=== PATIENT | female | born 1960 | race Caucasian/White ===

== ENCOUNTER 2016-04-09 17:57 | Emergency (ER) | payer MEDICAID, OTHER ==
[2016-04-09] MEDS ORDERED: GELATIN SPONGE,ABSORBABLE 12-7 1 SPONGE SPONGE TOPICAL ONE (18:15)
--- NOTE | 2016-04-09 19:34 | ER NURSING DOCUMENTATION ---
Nurse's Notes [facility] Name:Toya José Age:55 yrs Sex:Female :1960 Arrival Date:04/09/2016 Time:17:57 Bed1 Private MD:Susy Murguia Diagnosis:Wound Recheck Presentation: 04/09 18:05 Acuity: MARINA 2 cb 18:05 Notified ED Physician of patient's arrival and CC Dr. Dong notified. cb 18:06 Presenting complaint: Patient states: bleeding from post op skin removal. Transition of cb care: Caitie. 18:06 Method Of Arrival: Private Vehicle cb Triage Assessment: 18:10 General: Appears distressed, well groomed, Behavior is cooperative. Pain: Denies pain. cb 18:10 EENT: No deficits noted. cb 18:10 Neuro: Level of Consciousness is awake, alert, Oriented to person, place, time, event. cb Cardiovascular: Pulses are 2+ in left radial artery. Respiratory: Airway is patent Trachea midline Respiratory effort is even, unlabored, Respiratory pattern is regular, symmetrical. GI: Reports haven't eaten and drank anything all day. : No deficits noted. Derm: Skin suture line intact from procedure today but oozing and bleeding from suture line. Musculoskeletal: Circulation, motion, and sensation intact Capillary refill < 3 seconds. Historical: - Allergies: No known drug Allergies; - Home Meds: 1. Cymbalta oral 2. Nexium Oral 3. hypertension med 4. Metformin Oral 5. aspirin 81 mg oral tab 1 tab once daily 6. oxybutynin chloride 5 mg/5 mL oral syrp 5 mL 4 times per day - Tetanus: < 10 years. - Ebola Screening: : Patient negative for fever greater than or equal to 101.5 degrees Fahrenheit, and additional compatible Ebola Virus Disease symptoms. Patient denies exposure to infectious person. Patient denies travel to an Ebola-affected area in the 21 days before illness onset. No symptoms or risks identified at this time. . - Immunization history: Flu Vaccine None. - Social history: Smoking status: Patient states former smoker of tobacco. Screenin:24 Infectious Disease Risk None. Abuse screen: Denies threats or abuse. Denies injuries cb from another. Nutritional screening: No deficits noted. Vital Signs: 18:04 BP 170 / 106; Pulse 115; Resp 24; Temp 98.2(TE); Pulse Ox 91% on R/A; Weight 68.95 kg; cb Height 5 ft. 6 in. (167.64 cm); Pain 0/10; 19:02 BP 134 / 95; Pulse 90; cb 18:04 Body Mass Index 24.53 (68.95 kg, 167.64 cm) cb ED Course: 17:58 Patient arrived in ED. em2 17:58 Susy Murguia is Private Physician. em2 18:04 Gricel Mac, RN is Primary Nurse. cb 18:04 Valuables Remains with patient Patient has correct armband on for positive cb identification. Placed in gown. Bed in low position. Call light in reach. patient placed on abdomen for control of bleeding. 18:05 Triage completed. cb 18:23 Bruce Dong MD is Attending Physician. co 18:50 Dressings: ABD pad X 2; 4X4s X 4; post op dressing from dressing cart in Med/Surg cb placed directly onto suture line. 18:50 Feng wrap to back x3. cb 19:30 Diet: Patient given snack. Patient given juice. Tolerated well. cb Administered Medications: No medications were administered Outcome: 18:35 Discharge ordered by . co 19:33 Discharged to home ambulatory. 19:33 Condition: improved 19:33 Discharge Assessment: Patient awake, alert and oriented x 3. No cognitive and/or functional deficits noted. Patient verbalized understanding of disposition instructions. dressing is clean,dry and intact. Pt states dressing is secure and feels good. No leakage noted 19:33 Discharge instructions given to patient, Instructed on discharge instructions, follow up and referral plans. Demonstrated understanding of instructions. 19:34 Patient left the ED. 04/10 13:12 Discharge F/U Call: Spoke with: patient. Have you made a f/u appointment? yes Overall lb Care on a scale of 1-10 with 10 being the best care, you rate our care as: the rating of 9. Signatures: Gricel Mac, ROMAN OWENS cb Bruce Dong MD MD co Brayan-reg, Karly-reg em2 Kylie Sherwood Nelly Sanabria
--- NOTE | 2016-04-09 19:34 | ER PHYSICIAN DOCUMENTATION ---
Physician Documentation [facility] Name:Toya José Age:55 yrs Sex:Female :1960 Arrival Date:04/09/2016 Time:17:57 Bed1 Private MD:Susy Murguia ED, Scott Disposition: 04/09/16 18:35 Discharged to Home/Self Care. Impression: Wound Recheck. - Condition is Good. - Discharge Instructions: WOUND CHECK, Lac F/U (No Infection). - Medical Reconciliation form form. - Follow up: Private Physician; When: Tomorrow; Reason: Continuance of care. - Problem is new. - Symptoms have improved. HPI: 04/09 18:31 This 55 yrs old Female presents to ER via Private Vehicle with complaints of sc Back Injury. 18:31 Patient presents to ED for recheck of: youth services specialist excision today, now developed sc hematoma oozing from op site. The affected area is on the back. Previous treatment: The patient was initially treated today. Historical: - Allergies: No known drug Allergies; - Home Meds: 1. Cymbalta oral 2. Nexium Oral 3. hypertension med 4. Metformin Oral 5. aspirin 81 mg oral tab 1 tab once daily 6. oxybutynin chloride 5 mg/5 mL oral syrp 5 mL 4 times per day - Tetanus: < 10 years. - Ebola Screening: : Patient negative for fever greater than or equal to 101.5 degrees Fahrenheit, and additional compatible Ebola Virus Disease symptoms. Patient denies exposure to infectious person. Patient denies travel to an Ebola-affected area in the 21 days before illness onset. No symptoms or risks identified at this time. . - Immunization history: Flu Vaccine None. - Social history: Smoking status: Patient states former smoker of tobacco. ROS: 18:32 Constitutional: Negative for fever, chills, and weight loss. sc Eyes: Negative for injury, pain, redness, and discharge. Neck: Negative for injury, pain, and swelling. MS/Extremity: Negative for injury and deformity. 18:32 Neuro: Negative for headache, weakness, numbness, tingling, and seizure. sc 18:32 Skin: Positive for hematoma. Exam: Constitutional: This is a well developed, well nourished patient who is awake, alert, and in no acute distress. Head/Face: Normocephalic, atraumatic. Eyes: Pupils equal round and reactive to light, extra-ocular motions intact. Lids and lashes normal. Conjunctiva and sclera are non-icteric and not injected. Cornea within normal limits. Periorbital areas with no swelling, redness, or edema. Neck: Trachea midline, no thyromegaly or masses palpated, and no cervical lymphadenopathy. Supple, full range of motion without nuchal rigidity, or vertebral point tenderness. No meningismus. 18:33 Skin: Warm, dry with normal turgor. Normal color with no rashes, no lesions, and no sc evidence of cellulitis. 18:33 Back: well approximated 12 cm surgical wound with hematoma, oozing between sututres, ebl 150 mL. 18:35 Skin: Wound recheck: Suture laceration closure: sc Vital Signs: 18:04 BP 170 / 106; Pulse 115; Resp 24; Temp 98.2(TE); Pulse Ox 91% on R/A; Weight 68.95 kg; cb Height 5 ft. 6 in. (167.64 cm); Pain 0/10; 19:02 BP 134 / 95; Pulse 90; cb 18:04 Body Mass Index 24.53 (68.95 kg, 167.64 cm) cb MDM: 18:23 Patient medically screened. sc 18:34 Differential diagnosis: no sxs signif blood loss or infection, local wound care and sc pressure dressing, follow up with youth services specialist scheduled for tomorrow. Data reviewed: vital signs, nurses notes, old medical records, and as a result, I will discharge patient. Dispensed Medications: No medications were administered Signatures: Gricel Mac, RN RN Bruce Pink MD MD sc Kylie Sherwood
== END 2016-04-09 19:34 | disposition home or self-care (01) ==
LOC: ER 17:57
DX: L76.31 Postprocedural hematoma of skin and subcutaneous tissue following a dermatologic procedure (principal); Z48.01 Encounter for change or removal of surgical wound dressing; Z79.82 Long term (current) use of aspirin
CPT/HCPCS: 99283

== ENCOUNTER 2016-06-30 14:44 | Emergency (ER) | payer MEDICAID ==
[2016-06-30] MEDS ORDERED: LORazepam 1 MG TABLET ONE ×2 (15:13→15:35)
[2016-06-30] MEDS ORDERED: ACETAMINOPHEN 325 MG TABLET PO ONE (16:48)
[2016-06-30] MEDS ORDERED: IBUPROFEN 400 MG TABLET PO ONE (16:49)
--- NOTE | 2016-06-30 20:14 | ER PHYSICIAN DOCUMENTATION ---
Physician Documentation [facility] Name:Toya José Age:55 yrs Sex:Female :1960 Arrival Date:06/30/2016 Time:14:44 BedTrauma-A Private MD:Susy Murguia ED, John Disposition: 06/30/16 18:09 Discharged to Home/Self Care. Impression: Transient Global Amnesia. - Condition is Good. - Discharge Instructions: Anxieties - ANXIETY REACTION. - Medical Reconciliation form form. - Follow up: Susy Murguia; When: 2 - 3 days; Reason: Continuance of care. - Problem is new. - Symptoms have improved. HPI: 07/01 09:13 This 55 yrs old Female presents to ER via Private Vehicle with complaints of jm Anxiety, Memory Loss. 06/30 15:00 The patient presents to the emergency department with memory problems. . Onset: The jm symptom(s)/episode began/occurred 2 hour(s) ago. Context: occurred while the patient was doing normal activity. Associated signs and symptoms: Pertinent negatives: fever, headache, neck stiffness, blurred vision. Severity of symptoms: in the emergency department the symptoms are unchanged. Current symptoms: confusion. The patient has not experienced similar symptoms in the past. Pt admits to being under a lot of stress. She was getting ready for something, but couldn't remember what. She soon became very anxious and panicked. She decided to drive here. Pt is able to tell us her name, why, she is here, her Birthday, and date. She denies vision changes, dizziness's, numbness, or tingling. She has a mild VILLEGAS, but she says its from crying (which happens to her from time to time). . Historical: - Allergies: No known drug Allergies; - Home Meds: 1. Cymbalta oral 2. Nexium Oral 3. hypertension med 4. Metformin Oral 5. aspirin 81 mg oral tab 1 tab once daily 6. oxybutynin chloride 5 mg/5 mL oral syrp 5 mL 4 times per day - PMHx: Wound Recheck (April 09, 2016); DEPRESSION; GERD; DIABETES - NIDDM; ANXIETY; BLADDER SPASMS; Unstable Angina (September 03, 2015); Dehydration (September 03, 2015); Anxiety Reaction (September 03, 2015); Precordial Chest Pain - : Rule out [place] (September 03, 2015); - Tetanus: unknown. - Ebola Screening: : Patient negative for fever greater than or equal to 101.5 degrees Fahrenheit, and additional compatible Ebola Virus Disease symptoms. Patient denies exposure to infectious person. Patient denies travel to an Ebola-affected area in the 21 days before illness onset. No symptoms or risks identified at this time. . - Immunization history: Unable to Obtain. - Social history: Smoking status: Patient states former smoker of tobacco. ROS: 15:00 Constitutional: Negative for fatigue, fever. jm 15:00 Eyes: Negative for blurry vision, visual disturbance. 15:00 Cardiovascular: Negative for chest pain. 15:00 Respiratory: Negative for cough, shortness of breath. 15:00 Abdomen/GI: Positive for nausea, Negative for abdominal pain. 15:00 : Negative for urinary symptoms. 15:00 Neuro: Positive for altered mental status, headache, Negative for dizziness, weakness. 15:00 All other systems are negative. Exam: 15:00 Constitutional: The patient appears alert, awake, anxious, crying 15:00 Eyes: Periorbital structures: appear normal, Pupils: equal, round, and reactive to light and accomodation, Extraocular movements: intact throughout. 15:00 Cardiovascular: Rate: normal, Rhythm: regular. 15:00 Respiratory: Respirations: normal, Breath sounds: are normal. 15:00 Neuro: Mentation: is normal, Memory: is normal, except for she cannot remember what she was getting ready for. . 15:00 Neuro: Cranial nerves: CN II- XII are normal as tested, Cerebellar function: normal finger to nose testing, Motor: strength is 5/5 in all extremities, Sensation: is normal, Gait: is steady. 15:00 Psych: Behavior/mood is pleasant, cooperative, anxious, Affect is animated, Oriented to person, place, time, Patient has no thoughts/intents to harm self or others. Judgement / Insight is normal. Memory is normal. Delusions/hallucinations are not present. Vital Signs: 15:00 BP 178 / 110; Pulse 78; Resp 20; Pulse Ox 98% on R/A; Pain 5/10; rs 16:23 BP 140 / 98; Pulse 79; Resp 20; Pulse Ox 91% on R/A; Pain 7/10; rs 18:00 BP 130 / 72; Pulse 89; Resp 18; Pulse Ox 94% on R/A; Pain 1/10; rs 19:20 BP 130 / 76; Pulse 81; Resp 20; Pulse Ox 94% on R/A; Pain 0/10; rs MDM: 14:46 Patient medically screened. 18:00 Neurological re-evaluation: normal neurological exam including cranial nerves, jm orientation, mentation, motor and sensory exam, cerebellar testing, GCS normal, and normal gait. Data reviewed: vital signs, nurses notes, and as a result, I will discharge patient. Counseling: I had a detailed discussion with the patient and/or guardian regarding: the historical points, exam findings, and any diagnostic results supporting the discharge/admit diagnosis, the need for outpatient follow up, with the patient's primary care provider. Medication response: The patient's symptoms have improved, ativan x 2- pt then slept and woke up feeling great.. 18:00 ED course: Pt w TGA. Pt better after ativan and a nap. No other neuro sx to warrant jm imaging. Pt DC'd home. . Dispensed Medications: 15:00 Drug: Ativan 1 mg; Route: PO; rs 20:06 Follow up: Response: Anxiety decreased rs 15:22 Drug: Ativan 1 mg; Route: PO; rs 20:06 Follow up: Response: Anxiety decreased rs 16:30 Drug: Ibuprofen 800 mg; Route: PO; rs 17:00 Follow up: Response: Pain is decreased rs 16:30 Drug: Tylenol 975 mg; Route: PO; rs 17:00 Follow up: Response: Pain is decreased rs Signatures: Vilma Gale, RN RN rs Julian Whitney MD MD jm
--- NOTE | 2016-06-30 20:14 | ER NURSING DOCUMENTATION ---
Nurse's Notes [facility] Name:Toya José Age:55 yrs Sex:Female :1960 Arrival Date:06/30/2016 Time:14:44 BedTrauma-A Private MD:Susy Murguia Diagnosis:Transient Global Amnesia Presentation: 06/30 14:48 Presenting complaint: Patient states: C/O having memory problems. Started just [employer] (20 rs minutes?). She does remember her name, address, , her medications, allergies, Caitie is PCP, and she has been ill over last couple days with n/v/d. Denies abd pain. Has had chills. States she has a VILLEGAS now from crying, very anxious. Transition of care: patient was not received from another setting of care. Notified ED Physician of patient's arrival and CC Devonte Garcia notified. 14:48 Method Of Arrival: Private Vehicle rs 14:48 Acuity: MARINA 3 rs Triage Assessment: 15:13 General: Appears distressed, well developed, well nourished, well groomed, Behavior is rs cooperative, crying, pleasant. Pain: Complains of pain in VILLEGAS. Neuro: No deficits noted. Level of Consciousness is awake, alert, Oriented to person, place, time, event. Cardiovascular: No deficits noted. Capillary refill Pulses are 3+ in left radial artery. Respiratory: No deficits noted. Airway is patent Respiratory effort is even, unlabored, Respiratory pattern is regular, symmetrical, Breath sounds are clear bilaterally. Denies cough, shortness of breath. GI: No deficits noted. Abdomen is non- distended Bowel sounds present X 4 quads. Abd is soft and non tender Reports diarrhea, nausea, vomiting. Derm: No deficits noted. Skin is pink, warm & dry. Historical: - Allergies: No known drug Allergies; - Home Meds: 1. Cymbalta oral 2. Nexium Oral 3. hypertension med 4. Metformin Oral 5. aspirin 81 mg oral tab 1 tab once daily 6. oxybutynin chloride 5 mg/5 mL oral syrp 5 mL 4 times per day - PMHx: Wound Recheck (April 09, 2016); DEPRESSION; GERD; DIABETES - NIDDM; ANXIETY; BLADDER SPASMS; Unstable Angina (September 03, 2015); Dehydration (September 03, 2015); Anxiety Reaction (September 03, 2015); Precordial Chest Pain - : Rule out [place] (September 03, 2015); - Tetanus: unknown. - Ebola Screening: : Patient negative for fever greater than or equal to 101.5 degrees Fahrenheit, and additional compatible Ebola Virus Disease symptoms. Patient denies exposure to infectious person. Patient denies travel to an Ebola-affected area in the 21 days before illness onset. No symptoms or risks identified at this time. . - Immunization history: Unable to Obtain. - Social history: Smoking status: Patient states former smoker of tobacco. Screenin:58 Infectious Disease Risk None. Abuse screen: Denies threats or abuse. Nutritional rs screening: No deficits noted. Suicide Risk Assessment: Total Suicide Risk Assessment Score: zero. Assessment: 15:45 Reassessment: Patient states feeling better. States VILLEGAS is starting to resolve. She is rs still quite anxious, but no longer crying. . 18:46 Reassessment: Patient states feeling better. Patient states symptoms have improved. rs Patient appears in no apparent distress at this time. Has been asleep, arouses easily, and requests to be able just a little longer before she calls someone for a ride home. States she feels much better. . Vital Signs: 15:00 BP 178 / 110; Pulse 78; Resp 20; Pulse Ox 98% on R/A; Pain 5/10; rs 16:23 BP 140 / 98; Pulse 79; Resp 20; Pulse Ox 91% on R/A; Pain 7/10; rs 18:00 BP 130 / 72; Pulse 89; Resp 18; Pulse Ox 94% on R/A; Pain 1/10; rs 19:20 BP 130 / 76; Pulse 81; Resp 20; Pulse Ox 94% on R/A; Pain 0/10; rs ED Course: 14:45 Patient arrived in ED. ma1 14:45 Susy Murguia is Private Physician. ma1 14:46 Julian Whitney MD is Attending Physician. jeanette 14:48 Vilma Gale, ROMAN is Primary Nurse. rs 14:49 Susy Murguia is Referral Physician. jeanette 14:55 Notified ED Physician of patient's arrival and chief complaint. Dr. Whitney notified. Arm rs band placed on Bed in low position Call Light in Reach HOB Elevated Side rails up x1. 15:00 Valuables Remains with patient. Pulse Ox - RN Monitoring Only. rs 15:11 Triage completed. rs 18:02 Appears to be sleeping. rs 18:08 Susy Murguia is Referral Physician. jeanette Administered Medications: 15:00 Drug: Ativan 1 mg; Route: PO; rs 20:06 Follow up: Response: Anxiety decreased rs 15:22 Drug: Ativan 1 mg; Route: PO; rs 20:06 Follow up: Response: Anxiety decreased rs 16:30 Drug: Ibuprofen 800 mg; Route: PO; rs 17:00 Follow up: Response: Pain is decreased rs 16:30 Drug: Tylenol 975 mg; Route: PO; rs 17:00 Follow up: Response: Pain is decreased rs Outcome: 14:50 Discharge ordered by . 18:09 Discharge ordered by . 20:09 Discharged to home via wheelchair, with taxi. rs 20:09 Condition: improved 20:09 Discharge instructions given to patient, Instructed on discharge instructions, follow up and referral plans. Demonstrated understanding of instructions. 20:13 Patient left the ED. rs Signatures: Vilma Gale RN RN Julian Gaytan MD MD jm Addison, Melissa ma1
== END 2016-06-30 20:14 | disposition home or self-care (01) ==
LOC: ER 14:44
DX: G45.4 Transient global amnesia (principal); R11.0 Nausea; R51 Headache; F41.9 Anxiety disorder, unspecified; I10 Essential (primary) hypertension; E11.9 Type 2 diabetes mellitus without complications; Z79.899 Other long term (current) drug therapy; Z79.82 Long term (current) use of aspirin
CPT/HCPCS: 99283